=== PATIENT | female | born 1970 | race Caucasian/White ===

== ENCOUNTER 2017-10-06 08:49 | Outpatient (CLI) | payer OTHER ==
[~2017-10-06 08:49] MED LIST: CIPRO500 MG; DEXAMETHAS; INTESTINEX680 MG PO; PEPCID20 MG PO; PREDNISOLO15 MG/5 ML; PRILOSEC10 MG; PROVENTIL3 ML/2.5 M; SYNTHROID112 MCG; TESSALON PERLE100 MG
== END 2017-10-06 14:00 | disposition home or self-care (01) ==
LOC: RAD 08:49
DX: M79.671 Pain in right foot (principal)

== ENCOUNTER 2017-10-09 11:43 | Outpatient (CLI) | payer OTHER | END 2017-10-09 12:30 | disposition home or self-care (01) | LOC: NUCLEAR 11:43 | DX: I73.9 Peripheral vascular disease, unspecified (principal); M79.605 Pain in left leg; M79.604 Pain in right leg ==

== ENCOUNTER → 2017-11-05 08:00 | Outpatient (CLI) | payer OTHER | END | disposition home or self-care (01) | LOC: RAD 08:00 → ADM 14:45 → RAD 14:45 | DX: Z01.810 Encounter for preprocedural cardiovascular examination (principal) ==

== ENCOUNTER 2018-01-28 07:59 | Outpatient (CLI) | payer OTHER | END 2018-01-28 08:49 | disposition home or self-care (01) | LOC: TOM 07:59 | DX: R31.29 Other microscopic hematuria (principal) ==

== ENCOUNTER 2018-01-28 12:09 | Outpatient (CLI) | payer OTHER | END 2018-01-28 12:12 | disposition home or self-care (01) | LOC: MAMO-SONO 12:09 | DX: Z12.31 Encounter for screening mammogram for malignant neoplasm of breast (principal); N60.11 Diffuse cystic mastopathy of right breast; N60.12 Diffuse cystic mastopathy of left breast ==

== ENCOUNTER → 2018-06-11 | Outpatient (CLI) | payer OTHER | END | disposition home or self-care (01) | LOC: ADM 08:15 → RAD 09:00 → ADM 15:48 | DX: M19.041 Primary osteoarthritis, right hand (principal); M19.042 Primary osteoarthritis, left hand ==

== ENCOUNTER 2018-12-07 09:31 | Outpatient (CLI) | payer OTHER | END 2018-12-07 09:48 | disposition home or self-care (01) | LOC: MRI 09:31 | DX: M54.5 Low back pain (principal); M62.838 Other muscle spasm | CPT/HCPCS: 72148 ==

== ENCOUNTER 2020-01-02 08:59 | Outpatient (CLI) | payer OTHER | END 2020-01-02 10:08 | disposition home or self-care (01) | LOC: SONOGRAMA 08:59 | PROVIDERS: ATTEND Pathology Anatomic Pathology & Clinical Pathology | DX: E04.8 Other specified nontoxic goiter (principal) ==

== ENCOUNTER 2020-01-02 10:41 | Outpatient (CLI) | payer OTHER | END 2020-01-02 14:00 | disposition home or self-care (01) | LOC: NUCLEAR 10:41 | PROVIDERS: ATTEND Internal Medicine Endocrinology, Diabetes & Metabolism | DX: M81.0 Age-related osteoporosis without current pathological fracture (principal) ==

== ENCOUNTER 2021-01-16 08:12 | Outpatient (CLI) | payer OTHER | END 2021-01-16 08:15 | disposition home or self-care (01) | LOC: SONOGRAMA 08:12 | PROVIDERS: ATTEND Physical Medicine & Rehabilitation | DX: M25.512 Pain in left shoulder (principal); M75.22 Bicipital tendinitis, left shoulder ==

== ENCOUNTER 2021-03-14 08:51 | Outpatient (CLI) | payer OTHER | END 2021-03-14 09:02 | disposition home or self-care (01) | LOC: RAD 08:51 | PROVIDERS: ATTEND Physical Medicine & Rehabilitation | DX: M54.2 Cervicalgia (principal) ==

== ENCOUNTER 2021-04-08 14:38 | Outpatient (CLI) | payer OTHER | END 2021-04-08 14:51 | disposition home or self-care (01) | LOC: MRI 14:38 | PROVIDERS: ATTEND Physical Medicine & Rehabilitation | DX: M75.52 Bursitis of left shoulder (principal); M25.512 Pain in left shoulder; M75.122 Complete rotator cuff tear or rupture of left shoulder, not specified as traumatic; M75.31 Calcific tendinitis of right shoulder | CPT/HCPCS: 73221 ==

== ENCOUNTER 2024-03-14 07:53 | Outpatient (CLI) | payer OTHER | END 2024-03-14 08:15 | disposition home or self-care (01) | LOC: MRI 07:53 | DX: E04.8 Other specified nontoxic goiter (principal); M54.2 Cervicalgia; M47.812 Spondylosis without myelopathy or radiculopathy, cervical region; M50.220 Other cervical disc displacement, mid-cervical region, unspecified level; M50.322 Other cervical disc degeneration at C5-C6 level | CPT/HCPCS: 72141 ==

== ENCOUNTER 2024-09-19 15:02 | Outpatient (CLI) | payer OTHER | END 2024-09-19 15:05 | disposition home or self-care (01) | LOC: SONOGRAMA 15:02 | PROVIDERS: ATTEND Pathology Anatomic Pathology & Clinical Pathology | DX: D34 Benign neoplasm of thyroid gland (principal); E04.8 Other specified nontoxic goiter ==